=== PATIENT | male | born 1960 | race Caucasian/White ===

== ENCOUNTER 2018-02-02 07:10 | Outpatient (CLI) | payer OTHER ==
[~2018-02-02] VITALS: Ht 185.4 cm; Wt 99.8 kg
[2018-02-02] MEDS ORDERED: OXYC1TAB12 PO (09:51)
[2018-02-02] MEDS ORDERED: MULT-35 PO (09:51)
== END 2018-02-02 09:59 | disposition home or self-care (01) ==
LOC: PREOP 07:10
PROVIDERS: ATTEND Surgery
DX: Z01.818 Encounter for other preprocedural examination (principal)

== ENCOUNTER 2018-09-20 15:41 | Emergency (ER) | payer OTHER ==
[~2018-09-20] VITALS: Ht 185.4 cm; Wt 99.8 kg
[~2018-09-20 15:41] MED LIST: MULT-35 PO; OXYC1TAB12 PO
--- OUTSIDE RECORDS SUMMARY | 2018-09-20 15:46 | XMS REPORT ---
Author Author ALYSE BOTELLO [facility] Address [address] [place] [address] Care Team Providers Care Manager Ambulatory Name Role Phone ALYSE BOTELLO Unavailable PROBLEMS Type Condition ICD9-CM Code [id number] Code Onset Dates Condition Status SNOMED Code Problem Other chronic pain G89.29 Active 45323203 Problem Lumbago with sciatica, left side M54.42 Active 166653160 Problem Essential hypertension I10 Active 36695586 ALLERGIES No Information ENCOUNTERS Encounter Location Date Diagnosis [place] [address] [address]- [address] Mar, [place] [address] 47214- 4422 Feb, Lumbago with sciatica, left side M54.42 [place] [address] 34598- 6943 Jan, Lumbago with sciatica, left side M54.42 [place] [address] 68608- 0784 Dec, Lumbago with sciatica, left side M54.42 [place] [address] 37666- 9289 Dec, [place] [address] 48861- 5330 Dec, Essential hypertension I10 ; Lumbago with sciatica, left side M54.42 ; Other chronic pain G89.29 ; Overweight (BMI 25.0-29.9) E66.3 ; Controlled substance agreement signed Z79.899 ; High risk medication use Z79.899 and Umbilical hernia without obstruction and without gangrene K42.9 [facility] [address] [place] [address] 08381- 6794 Dec, Controlled substance agreement signed Z79.899 [facility] [address] [place] [id number] [place] [address] 61319- 2890 Oct, Controlled substance agreement signed Z79.899 [facility] [address] [place] [id number] [place] [address] 68683- 8655 Oct, Controlled substance agreement signed Z79.899 [facility] [address] [place] [id number] [place] [address] 04970- 8363 Oct, Essential hypertension I10 and Controlled substance agreement signed Z79.899 [place] [address] [place] [id number] [place] [address] 83597- 6024 September, Controlled substance agreement signed Z79.899 [place] [address] [place] [id number] [place] [address] 01523- 9465 Aug, Controlled substance agreement signed Z79.899 [facility] [address] [place] [id number] [place] [address] 00094- 9287 Aug, Controlled substance agreement signed Z79.899 [place] [address] [place] [id number] [place] [address] 88845- 4335 Aug, Controlled substance agreement signed Z79.899 [place] [address] [place] [id number] [place] [address] 07868- 8020 Aug, Controlled substance agreement signed Z79.899 [facility] [address] [place] [address] 09369- 3191 Jul, Controlled substance agreement signed Z79.899 and Essential hypertension I10 [facility] [address] [place] [id number] [place] [address] 32775- 7262 Jul, [facility] [address] [place] [address] 48777- 6092 Jun, Essential hypertension I10 ; Controlled substance agreement signed Z79.899 ; High risk medication use Z79.899 and Overweight (BMI 25.0-29.9 ) E66.3 [facility] [address] [facility] [id number] [place] [address]- 7[address] 16 Jun, 2017 [facility] [address] [facility] [id number] [address] 13 Jun, 2017 Essential hypertension I10 and Muscular pain M79.1 IMMUNIZATIONS No Known Immunizations SOCIAL HISTORY Never Assessed REASON FOR VISIT Medication refill request 03/01 PLAN OF CARE VITAL SIGNS MEDICATIONS Medication Instructions Dosage Frequency Start Date End Date Duration Status Percocet 10-325 MG Orally every 6 hrs 1 tablet as needed 6h Feb, 28 days Active RESULTS No Results PROCEDURES No Known procedures INSTRUCTIONS MEDICATIONS ADMINISTERED No Known Medications MEDICAL (GENERAL) HISTORY Type Description Date Medical History Back Pain from occupation Medical History hypertension
--- OUTSIDE RECORDS SUMMARY | 2018-09-20 15:46 | XMS REPORT ---
Author Author ALYSE BOTELLO [facility] Address [address] [place] [address] Care Team Providers Care Oil Plant Operator Name Role Phone ALYSE BOTELLO Unavailable PROBLEMS Type Condition ICD9-CM Code [id number]-QK Code Onset Dates Condition Status SNOMED Code Problem Other chronic pain G89.29 Active 56036665 Problem Lumbago with sciatica, left side M54.42 Active 797179518 Problem Essential hypertension I10 Active 41040435 ALLERGIES No Information ENCOUNTERS Encounter Location Date Diagnosis [place] [address] 32273- 8504 May, [place] [address] 35514- 6425 Apr, Essential hypertension I10 [place] [address] 07629- 9400 Mar, Essential hypertension I10 [facility] [place] [address] [place] [id number] [place] [address] 06991- 1374 Mar, Essential hypertension I10 [place] [address] 58012- 9095 Mar, Essential hypertension I10 [facility] [place] [address] [place] [id number] [place] [address] 90411- 2895 Mar, Essential hypertension I10 [facility] [place] [address] 29482- 7048 Feb, Lumbago with sciatica, left side M54.42 [facility] [place] [address] [place] [id number] [place] [address] 77564- 5668 Jan, Lumbago with sciatica, left side M54.42 [facility] [place] [address], [place] [address] 1060 Dec, Lumbago with sciatica, left side M54.42 [facility] [place] [address] [place] [address] 02883- 4000 Dec, [facility] [place] [address] [place] [id number] [place] [address] 98060- 0971 Dec, Essential hypertension I10 ; Lumbago with sciatica, left side M54.42 ; Other chronic pain G89.29 ; Overweight (BMI 25.0-29.9) E66.3 ; Controlled substance agreement signed Z79.899 ; High risk medication use Z79.899 and Umbilical hernia without obstruction and without gangrene K42.9 [place] [address], [place] [address] 2279 Dec, Controlled substance agreement signed Z79.899 [place] [address] [place] [id number] [place] [address] 14013- 4872 Oct, Controlled substance agreement signed Z79.899 [place] [address] [place] [id number] [place] [address] 81655- 3647 Oct, Controlled substance agreement signed Z79.899 [place] [address] [place] [address] 84074- 4893 Oct, Essential hypertension I10 and Controlled substance agreement signed Z79.899 [place] [address] [place] [address] 81077- 3186 September, Controlled substance agreement signed Z79.899 [place] [address] [place] [address] 62133- 8276 Aug, Controlled substance agreement signed Z79.899 [place] [address] [place] [address] 85193- 2413 Aug, Controlled substance agreement signed Z79.899 [place] [address] [place] [id number] [place] [address] 03197- 3638 Aug, Controlled substance agreement signed Z79.899 [place] [address] [place] [address] 13900- 0873 Aug, Controlled substance agreement signed Z79.899 [place] [address] [place] [id number] [place] [address] 13472- 4152 Jul, Controlled substance agreement signed Z79.899 and Essential hypertension I10 [place] [address] [place] [id number] [place] [address] 75276- 8236 Jul, [place] [address] [place] [address] 01191- 7984 19 Jun, 2017 Essential hypertension I10 ; Controlled substance agreement signed Z79.899 ; High risk medication use Z79.899 and Overweight (BMI 25.0-29.9 ) E66.3 [place] [address] [place] [address] 23111- 7383 16 Jun, 2017 [place] [address] [place] [address] 09789- 1748 13 Jun, 2017 Essential hypertension I10 and Muscular pain M79.1 IMMUNIZATIONS No Known Immunizations SOCIAL HISTORY Never Assessed REASON FOR VISIT Medication refill request PLAN OF CARE VITAL SIGNS MEDICATIONS Medication Instructions Dosage Frequency Start Date End Date Duration Status Percocet 10-325 MG Orally every 6 hrs 1 tablet as needed 6h Apr, 28 days Active Lisinopril 20 mg Orally Once a day 1 tablet 24h 10 Active RESULTS No Results PROCEDURES No Known procedures INSTRUCTIONS MEDICATIONS ADMINISTERED No Known Medications MEDICAL (GENERAL) HISTORY Type Description Date Medical History Back Pain from occupation Medical History hypertension
--- OUTSIDE RECORDS SUMMARY | 2018-09-20 15:46 | XMS REPORT ---
Author Author ALYSE BOTELLO [facility] Address [address] [place] [address] Care Team Providers Care Lime Trimmer Name Role Phone ALYSE BOTELLO Unavailable PROBLEMS Type Condition ICD9-CM Code [id number] Code Onset Dates Condition Status SNOMED Code Problem Other chronic pain G89.29 Active 83895352 Problem Lumbago with sciatica, left side M54.42 Active 639261465 Problem Essential hypertension I10 Active 72488251 ALLERGIES No Information ENCOUNTERS Encounter Location Date Diagnosis [place] [address] 33680- 3490 Mar, [place] [address] 27161- 4709 Mar, Essential hypertension I10 [place] [address] 74390- 3862 Feb, Lumbago with sciatica, left side M54.42 [place] [address] 75827- 0481 Jan, Lumbago with sciatica, left side M54.42 [place] [address] 30189- 8548 Dec, Lumbago with sciatica, left side M54.42 [place] [address] 24388- 5038 Dec, [place] [address] 35362- 4994 Dec, Essential hypertension I10 ; Lumbago with sciatica, left side M54.42 ; Other chronic pain G89.29 ; Overweight (BMI 25.0-29.9) E66.3 ; Controlled substance agreement signed Z79.899 ; High risk medication use Z79.899 and Umbilical hernia without obstruction and without gangrene K42.9 [facility] [address] [place] [id number] [place] [address] 66829- 9902 Dec, Controlled substance agreement signed Z79.899 [facility] [address] [place] [id number] [place] [address] 22448- 7887 Oct, Controlled substance agreement signed Z79.899 [facility] [address] [place] [id number] [place] [address] 35564- 4893 Oct, Controlled substance agreement signed Z79.899 [place] [address] [place] [id number] [place] [address] 26901- 5350 Oct, Essential hypertension I10 and Controlled substance agreement signed Z79.899 [place] [address] [place] [id number] [place] [address] 79063- 0783 September, Controlled substance agreement signed Z79.899 [place] [address] [place] [id number] [place] [address] 28618- 7603 Aug, Controlled substance agreement signed Z79.899 [place] [address] [place] [id number] [place] [address] 05724- 0965 Aug, Controlled substance agreement signed Z79.899 [place] [address] [place] [id number] [place] [address] 44518- 8766 Aug, Controlled substance agreement signed Z79.899 [place] [address] [place] [id number] [place] [address] 05063- 2686 Aug, Controlled substance agreement signed Z79.899 [place] [address] [place] [id number] [place] [address] 53694- 4320 Jul, Controlled substance agreement signed Z79.899 and Essential hypertension I10 [facility] [address] [place] [address] 77805- 1971 Jul, [facility] [address] [address]- 5456 19 Jun, 2017 Essential hypertension I10 ; Controlled substance agreement signed Z79.899 ; High risk medication use Z79.899 and Overweight (BMI 25.0-29.9 ) E66.3 [place] [address] [facility] [id number], [place] [address]- 6009 16 Jun, 2017 [place] [address] [place] [id number] [address]- 4198 13 Jun, 2017 Essential hypertension I10 and Muscular pain M79.1 IMMUNIZATIONS No Known Immunizations SOCIAL HISTORY Never Assessed REASON FOR VISIT Refill request PLAN OF CARE VITAL SIGNS MEDICATIONS Medication Instructions Dosage Frequency Start Date End Date Duration Status Lisinopril 20 mg Orally Once a day 1 tablet 24h 07 days Active RESULTS No Results PROCEDURES No Known procedures INSTRUCTIONS MEDICATIONS ADMINISTERED No Known Medications MEDICAL (GENERAL) HISTORY Type Description Date Medical History Back Pain from occupation Medical History hypertension
--- OUTSIDE RECORDS SUMMARY | 2018-09-20 15:46 | XMS REPORT ---
Author Author ALYSE BOTELLO [facility] Address [address] [place] [address] Care Team Providers Care Mental Health Coordinator Name Role Phone ALYSE BOTELLO Unavailable PROBLEMS Type Condition ICD9-CM Code PAQ36-RG Code Onset Dates Condition Status SNOMED Code Problem Other chronic pain G89.29 Active 53207725 Problem Lumbago with sciatica, left side M54.42 Active 693260454 Problem Essential hypertension I10 Active 57949882 ALLERGIES No Information ENCOUNTERS Encounter Location Date Diagnosis [place] [address] 52204- 8795 Mar, [place] [address] 24777- 3016 Mar, Essential hypertension I10 [place] [address] 37551- 8365 Mar, Essential hypertension I10 [place] [address] [place] [id number] [place] [address] 31361- 1652 Feb, Lumbago with sciatica, left side M54.42 [place] [address] [place] [id number] [place] [address] 65331- 0364 Jan, Lumbago with sciatica, left side M54.42 [place] [address] [place] [id number] [place] [address] 97049- 9737 Dec, Lumbago with sciatica, left side M54.42 [place] [address] [place] [id number] [place] [address] 85624- 6743 Dec, [place] [address] [place] [id number] [place] [address] 21375- 5578 Dec, Essential hypertension I10 ; Lumbago with sciatica, left side M54.42 ; Other chronic pain G89.29 ; Overweight (BMI 25.0-29.9) E66.3 ; Controlled substance agreement signed Z79.899 ; High risk medication use Z79.899 and Umbilical hernia without obstruction and without gangrene K42.9 [place] [address] [place] [id number] [place] [address] 10174- 2704 Dec, Controlled substance agreement signed Z79.899 [place] [address] [place] [id number] [place] [address] 92165- 7928 Oct, Controlled substance agreement signed Z79.899 [place] [address] [place] [id number] [place] [address] 44078- 8790 Oct, Controlled substance agreement signed Z79.899 [place] [address] [place] [id number] [place] [address] 41984- 0138 Oct, Essential hypertension I10 and Controlled substance agreement signed Z79.899 [place] [address] [place] [id number] [place] [address] 07880- 2984 September, Controlled substance agreement signed Z79.899 [place] [address] [place] [id number] [place] [address] 41424- 2646 Aug, Controlled substance agreement signed Z79.899 [place] [address] [place] [id number] [place] [address] 99936- 5042 Aug, Controlled substance agreement signed Z79.899 [place] [address] [place] [id number] [place] [address] 91974- 3083 Aug, Controlled substance agreement signed Z79.899 [place] [address] [place] [id number] [place] [address] 30012- 9619 Aug, Controlled substance agreement signed Z79.899 [place] [address] [place] [id number] [place] [address] 69781- 1874 Jul, Controlled substance agreement signed Z79.899 and Essential hypertension I10 [place] [address] [facility] [id number] [address]- 6392 Jul, [place] [address] [address]- 3175 19 Jun, 2017 Essential hypertension I10 ; Controlled substance agreement signed Z79.899 ; High risk medication use Z79.899 and Overweight (BMI 25.0-29.9 ) E66.3 [place] [address] [place] [address] 43488- 7048 16 Jun, 2017 [place] [address] [facility] [id number], [place] [address]- 4449 13 Jun, 2017 Essential hypertension I10 and Muscular pain M79.1 IMMUNIZATIONS No Known Immunizations SOCIAL HISTORY Never Assessed REASON FOR VISIT Medication refill request PLAN OF CARE VITAL SIGNS MEDICATIONS Medication Instructions Dosage Frequency Start Date End Date Duration Status Lisinopril 20 mg Orally Once a day 1 tablet 24h 7 days Active RESULTS No Results PROCEDURES No Known procedures INSTRUCTIONS MEDICATIONS ADMINISTERED No Known Medications MEDICAL (GENERAL) HISTORY Type Description Date Medical History Back Pain from occupation Medical History hypertension
--- OUTSIDE RECORDS SUMMARY | 2018-09-20 15:47 | XMS REPORT ---
Author Author KANWAL LIU Organization [facility] Address [address] [place] [address] Care Team Providers Care Preventative Maintenance Technician Name Role Phone KING KANWAL Unavailable PROBLEMS Type Condition ICD9-CM Code ZOP07-TW Code Onset Dates Condition Status SNOMED Code Problem Other chronic pain G89.29 Active 00583834 Problem Lumbago with sciatica, left side M54.42 Active 680163358 Problem Essential hypertension I10 Active 68567149 ALLERGIES No Information ENCOUNTERS Encounter Location Date Diagnosis [place] [address] 84070- 6170 Jan, Lumbago with sciatica, left side M54.42 [place] [address] 85872- 4048 Dec, Lumbago with sciatica, left side M54.42 [place] [address] 83632- 9905 Dec, [place] [address] 24648- 1135 Dec, Essential hypertension I10 ; Lumbago with sciatica, left side M54.42 ; Other chronic pain G89.29 ; Overweight (BMI 25.0-29.9) E66.3 ; Controlled substance agreement signed Z79.899 ; High risk medication use Z79.899 and Umbilical hernia without obstruction and without gangrene K42.9 [place] [address] 80041- 3691 Dec, Controlled substance agreement signed Z79.899 [place] [address] 80690- 1558 Oct, Controlled substance agreement signed Z79.899 [facility] [address] [place] [address] 60208- 1860 Oct, Controlled substance agreement signed Z79.899 [facility] [address] [place] [address] 74284- 5616 Oct, Essential hypertension I10 and Controlled substance agreement signed Z79.899 [place] [address] [place] [id number] [place] [address] 85934- 4660 September, Controlled substance agreement signed Z79.899 [place] [address] [place] [id number] [place] [address] 54005- 8118 Aug, Controlled substance agreement signed Z79.899 [place] [address] [place] [id number] [place] [address] 67140- 6986 Aug, Controlled substance agreement signed Z79.899 [place] [address] [place] [id number] [place] [address] 43189- 3681 Aug, Controlled substance agreement signed Z79.899 [place] [address] [place] [id number] [place] [address] 60372- 7881 Aug, Controlled substance agreement signed Z79.899 [place] [address] [place] [id number] [place] [address] 72233- 9943 Jul, Controlled substance agreement signed Z79.899 and Essential hypertension I10 [place] [address] [place] [address] 99780- 9266 Jul, [place] [address] [place] [address] 91290- 0248 Jun, Essential hypertension I10 ; Controlled substance agreement signed Z79.899 ; High risk medication use Z79.899 and Overweight (BMI 25.0-29.9 ) E66.3 [place] [address] [place] [address] 72394- 5116 Jun, [place] [address] [place] [id number] [place] [address] 85151- 0668 Jun, Essential hypertension I10 and Muscular pain M79.1 IMMUNIZATIONS No Known Immunizations SOCIAL HISTORY Never Assessed REASON FOR VISIT Controlled refill PLAN OF CARE VITAL SIGNS MEDICATIONS Medication Instructions Dosage Frequency Start Date End Date Duration Status Percocet 10-325 MG Orally every 6 hrs 1 tablet as needed 6h Jan, Active RESULTS No Results PROCEDURES No Known procedures INSTRUCTIONS MEDICATIONS ADMINISTERED No Known Medications MEDICAL (GENERAL) HISTORY Type Description Date Medical History Back Pain from occupation Medical History hypertension
--- OUTSIDE RECORDS SUMMARY | 2018-09-20 15:47 | XMS REPORT ---
Author Author JOSE LUIS COBB Organization [facility] Address [address] [place] [address] Care Team Providers Care Spooler Operator Automatic Name Role Phone COBBTAVARES LozanoELE Unavailable PROBLEMS Type Condition ICD9-CM Code [id number] Code Onset Dates Condition Status SNOMED Code Problem Other chronic pain G89.29 Active 88730479 Problem Lumbago with sciatica, left side M54.42 Active 101887312 Problem Essential hypertension I10 Active 35173631 ALLERGIES No Information ENCOUNTERS Encounter Location Date Diagnosis [place] [address] [address] [id number] [place] [address] 07899- 2363 Dec, Lumbago with sciatica, left side M54.42 [facility] [id number] [place] [address] 78165- 0036 Dec, [place] [address] 30570- 9664 Dec, Essential hypertension I10 ; Lumbago with sciatica, left side M54.42 ; Other chronic pain G89.29 ; Overweight (BMI 25.0-29.9) E66.3 ; Controlled substance agreement signed Z79.899 ; High risk medication use Z79.899 and Umbilical hernia without obstruction and without gangrene K42.9 [facility] [address] [place] [address] 17360- 7772 Dec, Controlled substance agreement signed Z79.899 [place] [id number] [place] [address] 54747- 9563 Oct, Controlled substance agreement signed Z79.899 [place] [id number] [place] [address] 59489- 8929 Oct, Controlled substance agreement signed Z79.899 [facility] [address] [place] [address] 26971- 7976 Oct, Essential hypertension I10 and Controlled substance agreement signed Z79.899 [facility] [id number] [place] [address] 71684- 7326 September, Controlled substance agreement signed Z79.899 [place] [id number] [place] [address] 78613- 6787 Aug, Controlled substance agreement signed Z79.899 [place] [id number] [place] [address] 15903- 8359 Aug, Controlled substance agreement signed Z79.899 [place] [id number] [place] [address] 27407- 2712 Aug, Controlled substance agreement signed Z79.899 [place] [id number] [place] [address] 10405- 7330 Aug, Controlled substance agreement signed Z79.899 [place] [id number] [place] [address] 71671- 4975 Jul, Controlled substance agreement signed Z79.899 and Essential hypertension I10 [place] [address] [place] [address] 56054- 3784 Jul, [place] [address] [place] [address] 68303- 7959 Jun, Essential hypertension I10 ; Controlled substance agreement signed Z79.899 ; High risk medication use Z79.899 and Overweight (BMI 25.0-29.9 ) E66.3 [place] [id number] [place] [address] 28829- 9250 Jun, [place] [id number] [place] [address] 06362- 7985 Jun, Essential hypertension I10 and Muscular pain M79.1 IMMUNIZATIONS No Known Immunizations SOCIAL HISTORY Never Assessed REASON FOR VISIT Controlled Med 01/06 PLAN OF CARE VITAL SIGNS MEDICATIONS Medication Instructions Dosage Frequency Start Date End Date Duration Status Percocet 10-325 MG Orally every 6 hrs 1 tablet as needed 6h Dec, Active RESULTS No Results PROCEDURES No Known procedures INSTRUCTIONS MEDICATIONS ADMINISTERED No Known Medications MEDICAL (GENERAL) HISTORY Type Description Date Medical History Back Pain from occupation Medical History hypertension
--- OUTSIDE RECORDS SUMMARY | 2018-09-20 15:47 | XMS REPORT ---
Author Author JOSE LUIS COBB Organization [facility] Address [address] [place] [address] Care Team Providers Care Watch Commander Name Role Phone COBBTAVARES LozanoELE Unavailable PROBLEMS Type Condition ICD9-CM Code NFG63-PU Code Onset Dates Condition Status SNOMED Code Problem Other chronic pain G89.29 Active 02975816 Problem Lumbago with sciatica, left side M54.42 Active 565574029 Problem Essential hypertension I10 Active 08044465 ALLERGIES No Information ENCOUNTERS Encounter Location Date Diagnosis [place] [address] [id number] [place] [address] 82516- 6206 Dec, Lumbago with sciatica, left side M54.42 [facility] [id number] [place] [address] 77806- 0675 Dec, [place] [address] 46495- 0669 Dec, Essential hypertension I10 ; Lumbago with sciatica, left side M54.42 ; Other chronic pain G89.29 ; Overweight (BMI 25.0-29.9) E66.3 ; Controlled substance agreement signed Z79.899 ; High risk medication use Z79.899 and Umbilical hernia without obstruction and without gangrene K42.9 [facility] [address] [place] [address] 67270- 6584 Dec, Controlled substance agreement signed Z79.899 [place] [id number] [place] [address] 10161- 4560 Oct, Controlled substance agreement signed Z79.899 [place] [id number] [place] [address] 47033- 4255 Oct, Controlled substance agreement signed Z79.899 [facility] [address] [place] [address] 83245- 9243 Oct, Essential hypertension I10 and Controlled substance agreement signed Z79.899 [facility] [id number] [place] [address] 55859- 4360 September, Controlled substance agreement signed Z79.899 [place] [id number] [place] [address] 00003- 3924 Aug, Controlled substance agreement signed Z79.899 [place] [id number] [place] [address] 79796- 4794 Aug, Controlled substance agreement signed Z79.899 [place] [id number] [place] [address] 36359- 7920 Aug, Controlled substance agreement signed Z79.899 [place] [id number] [place] [address] 18053- 1411 Aug, Controlled substance agreement signed Z79.899 [place] [id number] [place] [address] 71821- 4501 Jul, Controlled substance agreement signed Z79.899 and Essential hypertension I10 [place] [address] [place] [address] 44924- 0490 Jul, [place] [address] [place] [address] 50875- 0244 Jun, Essential hypertension I10 ; Controlled substance agreement signed Z79.899 ; High risk medication use Z79.899 and Overweight (BMI 25.0-29.9 ) E66.3 [place] [id number] [place] [address] 92971- 9258 Jun, [place] [id number] [place] [address] 52444- 3855 Jun, Essential hypertension I10 and Muscular pain M79.1 IMMUNIZATIONS No Known Immunizations SOCIAL HISTORY Never Assessed REASON FOR VISIT Percocet due 12/09 PLAN OF CARE VITAL SIGNS MEDICATIONS Medication Instructions Dosage Frequency Start Date End Date Duration Status Percocet 10-325 MG Orally every 6 hrs 1 tablet as needed 6h Dec, 28 days Active RESULTS No Results PROCEDURES No Known procedures INSTRUCTIONS MEDICATIONS ADMINISTERED No Known Medications MEDICAL (GENERAL) HISTORY Type Description Date Medical History Back Pain from occupation Medical History hypertension
--- OUTSIDE RECORDS SUMMARY | 2018-09-20 15:47 | XMS REPORT ---
Author Author JOSE LUIS COBB [facility] Address [address] [place] [address] Care Team Providers Care Steam Roller Operator Name Role Phone COBBTAVARES LozanoELE Unavailable PROBLEMS Type Condition ICD9-CM Code QQX25-AZ Code Onset Dates Condition Status SNOMED Code Problem Other chronic pain G89.29 Active 54045494 Problem Lumbago with sciatica, left side M54.42 Active 922053557 Problem Essential hypertension I10 Active 60445399 ALLERGIES No Information ENCOUNTERS Encounter Location Date Diagnosis [place] [address] [place] [id number] [place] [address] 49072- 0855 Dec, Essential hypertension I10 ; Lumbago with sciatica, left side M54.42 ; Other chronic pain G89.29 ; Overweight (BMI 25.0-29.9) E66.3 ; Controlled substance agreement signed Z79.899 ; High risk medication use Z79.899 and Umbilical hernia without obstruction and without gangrene K42.9 [place] [address] [place] [address] 91578- 9990 Dec, Controlled substance agreement signed Z79.899 [place] [address] [place] [id number] [place] [address] 73518- 8412 Oct, Controlled substance agreement signed Z79.899 [place] [address] [place] [id number] [place] [address] 91804- 4208 Oct, Controlled substance agreement signed Z79.899 [place] [id number] [place] [address] 70799- 6799 Oct, Essential hypertension I10 and Controlled substance agreement signed Z79.899 [place] [address] [address] [id number] [place] [address] 59692- 7877 September, Controlled substance agreement signed Z79.899 [place] [address] [place] [address] 25518- 8208 Aug, Controlled substance agreement signed Z79.899 [place] [address] [place] [address] 62410- 1595 Aug, Controlled substance agreement signed Z79.899 [place] [address] [address] [id number] [place] [address] 50759- 6824 Aug, Controlled substance agreement signed Z79.899 [place] [address] [address] [id number] [place] [address] 91781- 4298 Aug, Controlled substance agreement signed Z79.899 [place] [address] [address] [id number] [place] [address] 69283- 0951 Jul, Controlled substance agreement signed Z79.899 and Essential hypertension I10 [place] [address] [address] [id number] [place] [address] 01629- 6969 Jul, [place] [address] [address] [id number] [place] [address] 00035- 2113 Jun, Essential hypertension I10 ; Controlled substance agreement signed Z79.899 ; High risk medication use Z79.899 and Overweight (BMI 25.0-29.9 ) E66.3 [place] [address] [place] [address] 44198- 8037 Jun, [place] [address] [place] [address] 08362- 8465 Jun, Essential hypertension I10 and Muscular pain M79.1 IMMUNIZATIONS No Known Immunizations SOCIAL HISTORY Never Assessed REASON FOR VISIT Controlled Med Refill PLAN OF CARE VITAL SIGNS MEDICATIONS Medication Instructions Dosage Frequency Start Date End Date Duration Status Percocet 10-325 MG Orally every 6 hrs 1 tablet as needed 6h Oct, 28 days Active Lisinopril 20 mg Orally Once a day 1 tablet 24h 30 days Active RESULTS No Results PROCEDURES No Known procedures INSTRUCTIONS MEDICATIONS ADMINISTERED No Known Medications MEDICAL (GENERAL) HISTORY Type Description Date Medical History Back Pain from occupation Medical History hypertension
--- OUTSIDE RECORDS SUMMARY | 2018-09-20 15:47 | XMS REPORT ---
Author Author JOSE LUIS COBB [facility] Address [address] [place] [address] Care Team Providers Care Tax Appraiser Name Role Phone COBBTAVARES LozanoELE Unavailable PROBLEMS Type Condition ICD9-CM Code WYF35-LC Code Onset Dates Condition Status SNOMED Code Problem Other chronic pain G89.29 Active 16966581 Problem Lumbago with sciatica, left side M54.42 Active 074014839 Problem Essential hypertension I10 Active 95705748 ALLERGIES No Information ENCOUNTERS Encounter Location Date Diagnosis [place] [address] [place] [address] [id number] [place] [address] 46338- 6202 Dec, Essential hypertension I10 ; Lumbago with sciatica, left side M54.42 ; Other chronic pain G89.29 ; Overweight (BMI 25.0-29.9) E66.3 ; Controlled substance agreement signed Z79.899 ; High risk medication use Z79.899 and Umbilical hernia without obstruction and without gangrene K42.9 [place] [address] [place] [address] 13695- 9779 Dec, Controlled substance agreement signed Z79.899 [place] [address] [place] [id number] [place] [address] 38757- 7443 Oct, Controlled substance agreement signed Z79.899 [place] [address] [place] [address] [id number] [place] [address] 45954- 4877 Oct, Controlled substance agreement signed Z79.899 [place] [id number] [place] [address] 20449- 9479 Oct, Essential hypertension I10 and Controlled substance agreement signed Z79.899 [place] [address] [id number] [place] [address] 93401- 7160 September, Controlled substance agreement signed Z79.899 [place] [address] [address]- 5636 Aug, Controlled substance agreement signed Z79.899 [place] [address] [place] [address] 01641- 8786 Aug, Controlled substance agreement signed Z79.899 [place] [address] [place] [address] 58157- 1565 Aug, Controlled substance agreement signed Z79.899 [place] [id number] [place] [address] 70191- 5520 Aug, Controlled substance agreement signed Z79.899 [place] [address] [id number] [place] [address] 38396- 7834 Jul, Controlled substance agreement signed Z79.899 and Essential hypertension I10 [place] [address] [id number] [place] [address] 58050- 2675 Jul, [place] [address] [id number] [place] [address] 97459- 2217 Jun, Essential hypertension I10 ; Controlled substance agreement signed Z79.899 ; High risk medication use Z79.899 and Overweight (BMI 25.0-29.9 ) E66.3 [place] [address] [address]- 4136 Jun, [place] [address] [place] [address] 41917- 0152 Jun, Essential hypertension I10 and Muscular pain M79.1 IMMUNIZATIONS No Known Immunizations SOCIAL HISTORY Never Assessed REASON FOR VISIT Controlled Med Refill PLAN OF CARE VITAL SIGNS MEDICATIONS Medication Instructions Dosage Frequency Start Date End Date Duration Status Percocet 10-325 MG Orally every 6 hrs 1 tablet as needed 6h Oct, 28 days Active RESULTS No Results PROCEDURES No Known procedures INSTRUCTIONS MEDICATIONS ADMINISTERED No Known Medications MEDICAL (GENERAL) HISTORY Type Description Date Medical History Back Pain from occupation Medical History hypertension
--- OUTSIDE RECORDS SUMMARY | 2018-09-20 15:47 | XMS REPORT ---
Author Author JOSE LUIS COBB Organization [facility] [place] Address [address] [place] [address] Care Team Providers Care Primer Inserting Machine Adjuster Name Role Phone COBBTAVARES LozanoELE Unavailable PROBLEMS Type Condition ICD9-CM Code DLQ20-SU Code Onset Dates Condition Status SNOMED Code Problem Essential hypertension I10 Active 47511603 ALLERGIES No Information ENCOUNTERS Encounter Location Date Diagnosis [facility] [place] [address] [place] [id number] [place] [address] 64478- 4542 Dec, [place] [address] [place] [address] [id number] [place] [address] 47640- 6396 Oct, Controlled substance agreement signed Z79.899 [place] [address] [place] [address] [id number] [place] [address] 30778- 5670 Oct, Controlled substance agreement signed Z79.899 [place] [address] [place] [address] [id number] [place] [address] 47895- 2502 Oct, Essential hypertension I10 and Controlled substance agreement signed Z79.899 [place] [address] [place] [address] 87110- 4930 September, Controlled substance agreement signed Z79.899 [place] [address] [place] [address] [id number] [place] [address] 84631- 2008 Aug, Controlled substance agreement signed Z79.899 [place] [address] [place] [address] [id number] [place] [address] 31461- 1969 Aug, Controlled substance agreement signed Z79.899 [place] [address] [place] [address] 14423- 6774 Aug, Controlled substance agreement signed Z79.899 [place] [address] [place] [id number] [address]- 0995 Aug, Controlled substance agreement signed Z79.899 [place] [id number] [place] [address] 01948- 8441 Jul, Controlled substance agreement signed Z79.899 and Essential hypertension I10 [place] [id number] [place] [address] 47912- 4449 Jul, [place] [address] [id number] [place] [address] 94404- 8342 Jun, Essential hypertension I10 ; Controlled substance agreement signed Z79.899 ; High risk medication use Z79.899 and Overweight (BMI 25.0-29.9 ) E66.3 [place] [address] [place] [address] 79995- 3907 16 Jun, 2017 [place] [id number] [place] [address] 69865- 3353 13 Jun, 2017 Essential hypertension I10 and Muscular pain M79.1 IMMUNIZATIONS No Known Immunizations SOCIAL HISTORY Never Assessed REASON FOR VISIT Controlled Med Refill PLAN OF CARE VITAL SIGNS MEDICATIONS Medication Instructions Dosage Frequency Start Date End Date Duration Status Percocet 10-325 MG Orally every 6 hrs 1 tablet as needed 6h Aug, 28 days Active RESULTS No Results PROCEDURES No Known procedures INSTRUCTIONS MEDICATIONS ADMINISTERED No Known Medications MEDICAL (GENERAL) HISTORY Type Description Date Medical History Back Pain from occupation Medical History hypertension
--- OUTSIDE RECORDS SUMMARY | 2018-09-20 15:47 | XMS REPORT ---
Author Author JOSE LUIS COBB Organization [facility] Address [address] [place] [address] Care Team Providers Care Oracle Sql Developer Name Role Phone COBBTAVARES LozanoELE Unavailable PROBLEMS Type Condition ICD9-CM Code OTV54-[place] Code Onset Dates Condition Status SNOMED Code Problem Other chronic pain G89.29 Active 70708354 Problem Lumbago with sciatica, left side M54.42 Active 942943681 Problem Essential hypertension I10 Active 07199059 ALLERGIES No Information ENCOUNTERS Encounter Location Date Diagnosis [place] [address] [place] [id number] [place] [address] 67911- 4171 Dec, Lumbago with sciatica, left side M54.42 [facility] [id number] [place] [address] 55477- 4066 Dec, [place] [address] 83938- 5248 Dec, Essential hypertension I10 ; Lumbago with sciatica, left side M54.42 ; Other chronic pain G89.29 ; Overweight (BMI 25.0-29.9) E66.3 ; Controlled substance agreement signed Z79.899 ; High risk medication use Z79.899 and Umbilical hernia without obstruction and without gangrene K42.9 [facility] [address] [place] [address] 11172- 9133 Dec, Controlled substance agreement signed Z79.899 [place] [id number] [place] [address] 16151- 1725 Oct, Controlled substance agreement signed Z79.899 [place] [address] [id number] [place] [address] 37071- 5017 Oct, Controlled substance agreement signed Z79.899 [facility] [address] [place] [address] 51861- 4484 Oct, Essential hypertension I10 and Controlled substance agreement signed Z79.899 [facility] [id number] [place] [address] 76573- 1413 September, Controlled substance agreement signed Z79.899 [place] [address] [id number] [place] [address] 53771- 7389 Aug, Controlled substance agreement signed Z79.899 [place] [address] [id number] [place] [address] 68399- 2525 Aug, Controlled substance agreement signed Z79.899 [place] [address] [id number] [place] [address] 18206- 5885 Aug, Controlled substance agreement signed Z79.899 [place] [address] [id number] [place] [address] 73146- 0978 Aug, Controlled substance agreement signed Z79.899 [place] [address] [id number] [place] [address] 49890- 5087 Jul, Controlled substance agreement signed Z79.899 and Essential hypertension I10 [place] [address] [place] [address] 24141- 7445 Jul, [place] [address] [place] [address] 78332- 7390 Jun, Essential hypertension I10 ; Controlled substance agreement signed Z79.899 ; High risk medication use Z79.899 and Overweight (BMI 25.0-29.9 ) E66.3 [place] [address] [id number] [place] [address] 89816- 1378 Jun, [place] [address] [place] [id number] [place] [address] 31401- 7792 Jun, Essential hypertension I10 and Muscular pain M79.1 IMMUNIZATIONS No Known Immunizations SOCIAL HISTORY Never Assessed REASON FOR VISIT Controlled Med Refill 11/11 PLAN OF CARE VITAL SIGNS MEDICATIONS Medication Instructions Dosage Frequency Start Date End Date Duration Status Percocet 10-325 MG Orally every 6 hrs 1 tablet as needed 6h Nov, 28 days Active RESULTS No Results PROCEDURES No Known procedures INSTRUCTIONS MEDICATIONS ADMINISTERED No Known Medications MEDICAL (GENERAL) HISTORY Type Description Date Medical History Back Pain from occupation Medical History hypertension
--- OUTSIDE RECORDS SUMMARY | 2018-09-20 15:47 | XMS REPORT ---
Author Author JOSE LUIS COBB [facility] Address [address] [place] [address] Care Team Providers Care Telecommunications Equipment Installer Name Role Phone COBBTAVARES LozanoELE Unavailable PROBLEMS Type Condition ICD9-CM Code TJS94-FO Code Onset Dates Condition Status SNOMED Code Problem Other chronic pain G89.29 Active 25539269 Problem Lumbago with sciatica, left side M54.42 Active 619069705 Problem Essential hypertension I10 Active 60361547 ALLERGIES No Information ENCOUNTERS Encounter Location Date Diagnosis [place] [id number] [place] [address] 49790- 9624 Dec, Essential hypertension I10 ; Lumbago with sciatica, left side M54.42 ; Other chronic pain G89.29 ; Overweight (BMI 25.0-29.9) E66.3 ; Controlled substance agreement signed Z79.899 ; High risk medication use Z79.899 and Umbilical hernia without obstruction and without gangrene K42.9 [place] [address] [place] [address] 34406- 1056 Dec, Controlled substance agreement signed Z79.899 [place] [id number] [place] [address] 14139- 8102 Oct, Controlled substance agreement signed Z79.899 [place] [id number] [place] [address] 90744- 9977 Oct, Controlled substance agreement signed Z79.899 [place] [id number] [place] [address] 63110- 9171 Oct, Essential hypertension I10 and Controlled substance agreement signed Z79.899 [place] [id number] [place] [address] 99578- 8872 September, Controlled substance agreement signed Z79.899 [place] [address] [address] 9453 Aug, Controlled substance agreement signed Z79.899 [place] [address] [place] [address] 99005- 8855 Aug, Controlled substance agreement signed Z79.899 [place] [address] [place] [address] 68315- 0703 Aug, Controlled substance agreement signed Z79.899 [place] [id number] [place] [address] 14270- 3595 Aug, Controlled substance agreement signed Z79.899 [place] [id number] [place] [address] 55033- 4405 Jul, Controlled substance agreement signed Z79.899 and Essential hypertension I10 [place] [id number] [place] [address] 08654- 0595 Jul, [place] [id number] [place] [address] 22883- 7261 Jun, Essential hypertension I10 ; Controlled substance agreement signed Z79.899 ; High risk medication use Z79.899 and Overweight (BMI 25.0-29.9 ) E66.3 [place] [address] [address] 6917 Jun, [place] [address] [place] [address] 41760- 2688 Jun, Essential hypertension I10 and Muscular pain M79.1 IMMUNIZATIONS No Known Immunizations SOCIAL HISTORY Never Assessed REASON FOR VISIT Controlled Med Refill PLAN OF CARE VITAL SIGNS MEDICATIONS Medication Instructions Dosage Frequency Start Date End Date Duration Status Percocet 10-325 MG Orally every 6 hrs 1 tablet as needed 6h September, 28 days Active RESULTS No Results PROCEDURES No Known procedures INSTRUCTIONS MEDICATIONS ADMINISTERED No Known Medications MEDICAL (GENERAL) HISTORY Type Description Date Medical History Back Pain from occupation Medical History hypertension
--- OUTSIDE RECORDS SUMMARY | 2018-09-20 15:47 | XMS REPORT ---
Author Author JOSE LUIS COBB Organization [facility] Address [address] [place] [address] Care Team Providers Care Supervisor Pigment Making Name Role Phone COBBTAVARES LozanoELE Unavailable PROBLEMS Type Condition ICD9-CM Code XCS00-WI Code Onset Dates Condition Status SNOMED Code Problem Essential hypertension I10 Active 68926848 ALLERGIES No Information ENCOUNTERS Encounter Location Date Diagnosis [facility] [id number] [place] [address] 63576- 5322 Dec, [place] [id number] [place] [address] 33238- 4497 Oct, Controlled substance agreement signed Z79.899 [place] [id number] [place] [address] 26841- 6671 Oct, Controlled substance agreement signed Z79.899 [place] [id number] [place] [address] 62513- 1947 Oct, Essential hypertension I10 and Controlled substance agreement signed Z79.899 [place] [address] [place] [address] 38039- 8178 September, Controlled substance agreement signed Z79.899 [place] [id number] [place] [address] 12345- 6155 Aug, Controlled substance agreement signed Z79.899 [place] [address] [id number] [place] [address] 16161- 7959 Aug, Controlled substance agreement signed Z79.899 [place] [address] [place] [address] 78263- 4180 Aug, Controlled substance agreement signed Z79.899 [place] [id number] [address]- 9181 Aug, Controlled substance agreement signed Z79.899 [place] [id number] [place] [address] 98804- 1300 Jul, Controlled substance agreement signed Z79.899 and Essential hypertension I10 [place] [id number] [place] [address] 14530- 8536 Jul, [place] [id number] [place] [address] 75632- 4574 Jun, Essential hypertension I10 ; Controlled substance agreement signed Z79.899 ; High risk medication use Z79.899 and Overweight (BMI 25.0-29.9 ) E66.3 [place] [address] [place] [address] 42566- 5401 16 Jun, 2017 [place] [id number] [place] [address] 73140- 1226 13 Jun, 2017 Essential hypertension I10 and [...]
--- OUTSIDE RECORDS SUMMARY | 2018-09-20 15:47 | XMS REPORT ---
Author Author JOSE LUIS COBB [facility] Address [address] [place] [address] Care Team Providers Care Vector Control Specialist Name Role Phone COBBTAVARES LozanoELE Unavailable PROBLEMS Type Condition ICD9-CM Code AUV34-AD Code Onset Dates Condition Status SNOMED Code Problem Other chronic pain G89.29 Active 38338948 Problem Lumbago with sciatica, left side M54.42 Active 239355697 Problem Essential hypertension I10 Active 92439563 ALLERGIES No Known Allergies ENCOUNTERS Encounter Location Date Diagnosis [place] [address] [place] [address] [id number] [place] [address] 38462- 5387 Dec, Lumbago with sciatica, left side M54.42 [facility] [id number] [place] [address] 27137- 2747 Dec, [place] [address] 82798- 3361 Dec, Essential hypertension I10 ; Lumbago with sciatica, left side M54.42 ; Other chronic pain G89.29 ; Overweight (BMI 25.0-29.9) E66.3 ; Controlled substance agreement signed Z79.899 ; High risk medication use Z79.899 and Umbilical hernia without obstruction and without gangrene K42.9 [facility] [address] [place] [address] 45224- 7047 Dec, Controlled substance agreement signed Z79.899 [place] [id number] [place] [address] 15423- 0041 Oct, Controlled substance agreement signed Z79.899 [place] [address] [id number] [place] [address] 87610- 4267 Oct, Controlled substance agreement signed Z79.899 [facility] [address] [place] [address] 17188- 9180 Oct, Essential hypertension I10 and Controlled substance agreement signed Z79.899 [facility] [id number] [place] [address] 93637- 7908 September, Controlled substance agreement signed Z79.899 [place] [address] [id number] [place] [address] 72520- 2533 Aug, Controlled substance agreement signed Z79.899 [place] [address] [address] [id number] [place] [address] 26881- 0211 Aug, Controlled substance agreement signed Z79.899 [place] [address] [id number] [place] [address] 12944- 5264 Aug, Controlled substance agreement signed Z79.899 [place] [address] [address] [id number] [place] [address] 39937- 1684 Aug, Controlled substance agreement signed Z79.899 [place] [address] [id number] [place] [address] 00390- 1158 Jul, Controlled substance agreement signed Z79.899 and Essential hypertension I10 [place] [address] [place] [address] 35252- 2916 Jul, [place] [address] [id number] [place] [address] 70245- 5827 Jun, Essential hypertension I10 ; Controlled substance agreement signed Z79.899 ; High risk medication use Z79.899 and Overweight (BMI 25.0-29.9 ) E66.3 [place] [address] [id number] [place] [address] 80836- 8969 Jun, [place] [address] [address] [id number] [place] [address] 41093- 8097 Jun, Essential hypertension I10 and Muscular pain M79.1 IMMUNIZATIONS No Known Immunizations SOCIAL HISTORY Never Assessed REASON FOR VISIT Pain management (chronic) -- laurie roberts PLAN OF CARE Activity Details Follow Up 3 Months, prn Reason:CHM/Pain/HTN VITAL SIGNS Height 73 in 2017-12-14 Weight 222.6 lbs 2017-12-14 Temperature 98.0 degrees Fahrenheit 2017-12-14 Heart Rate 88 bpm 2017-12-14 Respiratory Rate 22 2017-12-14 BMI 29.37 kg/m2 2017-12-14 Blood pressure systolic 140 mmHg 2017-12-14 Blood pressure diastolic 92 mmHg 2017-12-14 MEDICATIONS Medication Instructions Dosage Frequency Start Date End Date Duration Status Potassium Bicarbonate 99 MG Active Lisinopril 20 mg Orally Once a day 1 tablet 24h Active Calcium 500 MG Orally Twice a day 1 tablet with meals 12h Active Omeprazole Magnesium 20 MG Orally Once a day 1 tablet 24h Active Percocet 10-325 MG Orally every 6 hrs 1 tablet as needed 6h Dec, Active Multivitamin Adult - Active RESULTS No Results PROCEDURES Procedure Date Ordered Result Body Site LIPID PANEL Dec 14, 2017 COMPLETE CBC W/AUTO DIFF WBC Dec 14, 2017 COMPREHEN METABOLIC PANEL Dec 14, 2017 ASSAY THYROID STIM HORMONE Dec 14, 2017 VENIPUNCT, ROUTINE* Dec 14, 2017 DRUG TEST PRSMV DIR OPT OBS Dec 14, 2017 INSTRUCTIONS MEDICATIONS ADMINISTERED No Known Medications MEDICAL (GENERAL) HISTORY Type Description Date Medical History Back Pain from occupation Medical History hypertension
--- OUTSIDE RECORDS SUMMARY | 2018-09-20 15:47 | XMS REPORT ---
Author Author JOSE LUIS COBB Organization [facility] Address [address] [place] [address] Care Team Providers Care Hydro Plant Operator Name Role Phone COBBTAVARES LozanoELE Unavailable PROBLEMS Type Condition ICD9-CM Code CBV77-KB Code Onset Dates Condition Status SNOMED Code Problem Other chronic pain G89.29 Active 82036982 Problem Lumbago with sciatica, left side M54.42 Active 461251449 Problem Essential hypertension I10 Active 19201299 ALLERGIES No Information ENCOUNTERS Encounter Location Date Diagnosis [place] [address] [place] [address] [id number] [place] [address] 24729- 2535 Dec, Lumbago with sciatica, left side M54.42 [facility] [id number] [place] [address] 92269- 1992 Dec, [place] [address] 16689- 7245 Dec, Essential hypertension I10 ; Lumbago with sciatica, left side M54.42 ; Other chronic pain G89.29 ; Overweight (BMI 25.0-29.9) E66.3 ; Controlled substance agreement signed Z79.899 ; High risk medication use Z79.899 and Umbilical hernia without obstruction and without gangrene K42.9 [facility] [address] [place] [address] 16534- 4547 Dec, Controlled substance agreement signed Z79.899 [place] [id number] [place] [address] 33875- 6229 Oct, Controlled substance agreement signed Z79.899 [place] [id number] [place] [address] 48747- 0074 Oct, Controlled substance agreement signed Z79.899 [facility] [address] [place] [address] 52025- 8848 Oct, Essential hypertension I10 and Controlled substance agreement signed Z79.899 [facility] [id number] [place] [address] 78878- 9211 September, Controlled substance agreement signed Z79.899 [place] [address] [id number] [place] [address] 67654- 9511 Aug, Controlled substance agreement signed Z79.899 [place] [address] [id number] [place] [address] 20789- 2061 Aug, Controlled substance agreement signed Z79.899 [place] [address] [id number] [place] [address] 97193- 0363 Aug, Controlled substance agreement signed Z79.899 [place] [address] [place] [id number] [place] [address] 89089- 6598 Aug, Controlled substance agreement signed Z79.899 [place] [address] [id number] [place] [address] 11901- 0757 Jul, Controlled substance agreement signed Z79.899 and Essential hypertension I10 [place] [address] [place] [address] 05185- 5838 Jul, [place] [address] [address] [id number] [place] [address] 27558- 9663 Jun, Essential hypertension I10 ; Controlled substance agreement signed Z79.899 ; High risk medication use Z79.899 and Overweight (BMI 25.0-29.9 ) E66.3 [place] [id number] [place] [address] 82412- 0987 Jun, [place] [address] [address] [id number] [place] [address] 23414- 5872 Jun, Essential hypertension I10 and Muscular pain M79.1 IMMUNIZATIONS No Known Immunizations SOCIAL HISTORY Never Assessed REASON FOR VISIT Referral PLAN OF CARE VITAL SIGNS MEDICATIONS Unknown Medications RESULTS No Results PROCEDURES No Known procedures INSTRUCTIONS MEDICATIONS ADMINISTERED No Known Medications MEDICAL (GENERAL) HISTORY Type Description Date Medical History Back Pain from occupation Medical History hypertension
--- OUTSIDE RECORDS SUMMARY | 2018-09-20 15:47 | XMS REPORT ---
Author Author JOSE LUIS COBB Organization [facility] Address [address] [place] [address] Care Team Providers Care Commercial Lines Insurance Agent Name Role Phone COBBTAVARES LozanoELE Unavailable PROBLEMS Type Condition ICD9-CM Code ERI87-TS Code Onset Dates Condition Status SNOMED Code Problem Essential hypertension I10 Active 62658934 ALLERGIES No Information ENCOUNTERS Encounter Location Date Diagnosis [facility] [id number] [place] [address] 15408- 0372 Dec, [place] [id number] [place] [address] 56602- 7743 Oct, Controlled substance agreement signed Z79.899 [place] [address] [id number] [place] [address] 74609- 1560 Oct, Controlled substance agreement signed Z79.899 [place] [id number] [place] [address] 67760- 2160 Oct, Essential hypertension I10 and Controlled substance agreement signed Z79.899 [place] [address] [place] [address] 97454- 5340 September, Controlled substance agreement signed Z79.899 [place] [id number] [place] [address] 41181- 8810 Aug, Controlled substance agreement signed Z79.899 [place] [address] [address] [id number] [place] [address] 76606- 6009 Aug, Controlled substance agreement signed Z79.899 [place] [address] [place] [address] 37065- 3091 Aug, Controlled substance agreement signed Z79.899 [place] [id number] [address]- 4372 09 Aug, 2017 Controlled substance agreement signed Z79.899 [place] [id number] [place] [address] 15529- 8405 Jul, Controlled substance agreement signed Z79.899 and Essential hypertension I10 [place] [id number] [place] [address] 26648- 8883 Jul, [place] [id number] [place] [address] 49518- 5660 19 Jun, 2017 Essential hypertension I10 ; Controlled substance agreement signed Z79.899 ; High risk medication use Z79.899 and Overweight (BMI 25.0-29.9 ) E66.3 [place] [address] [place] [address] 32235- 7627 16 Jun, 2017 [place] [address] [id number] [place] [address] 72480- 1740 13 Jun, 2017 Essential hypertension I10 and Muscular pain M79.1 IMMUNIZATIONS No Known Immunizations SOCIAL HISTORY Never Assessed REASON FOR VISIT Controlled Med Refill PLAN OF CARE VITAL SIGNS MEDICATIONS Medication Instructions Dosage Frequency Start Date End Date Duration Status Percocet 10-325 MG Orally every 6 hrs 1 tablet as needed 6h 15 Jul, 2017 28 days Active RESULTS No Results PROCEDURES No Known procedures INSTRUCTIONS MEDICATIONS ADMINISTERED No Known Medications MEDICAL (GENERAL) HISTORY Type Description Date Medical History Back Pain from occupation Medical History hypertension
--- OUTSIDE RECORDS SUMMARY | 2018-09-20 15:47 | XMS REPORT ---
Author Author JOSE LUIS COBB Organization [facility] Address [address] [place] [address] Care Team Providers Care Credit Verifier Name Role Phone COBBTAVARES LozanoELE Unavailable PROBLEMS Type Condition ICD9-CM Code HSK29-AS Code Onset Dates Condition Status SNOMED Code Problem Essential hypertension I10 Active 66498089 ALLERGIES No Information ENCOUNTERS Encounter Location Date Diagnosis [facility] [id number] [place] [address] 30660- 3323 Dec, [place] [id number] [place] [address] 55903- 3160 Oct, Controlled substance agreement signed Z79.899 [place] [id number] [place] [address] 59820- 7224 Oct, Controlled substance agreement signed Z79.899 [place] [id number] [place] [address] 55548- 2171 Oct, Essential hypertension I10 and Controlled substance agreement signed Z79.899 [place] [address] [place] [address] 31548- 1480 September, Controlled substance agreement signed Z79.899 [place] [id number] [place] [address] 12655- 7178 Aug, Controlled substance agreement signed Z79.899 [place] [id number] [place] [address] 12674- 5463 Aug, Controlled substance agreement signed Z79.899 [place] [address] [place] [address] 15289- 0376 Aug, Controlled substance agreement signed Z79.899 [place] [id number] [address]- 5233 Aug, Controlled substance agreement signed Z79.899 [place] [id number] [place] [address] 62177- 0779 Jul, Controlled substance agreement signed Z79.899 and Essential hypertension I10 [place] [id number] [place] [address] 19354- 5634 Jul, [place] [id number] [place] [address] 08680- 3973 Jun, Essential hypertension I10 ; Controlled substance agreement signed Z79.899 ; High risk medication use Z79.899 and Overweight (BMI 25.0-29.9 ) E66.3 [place] [address] [place] [address] 08953- 3863 16 Jun, 2017 [place] [id number] [place] [address] 64373- 4471 13 Jun, 2017 Essential hypertension I10 and Muscular pain M79.1 IMMUNIZATIONS No Known Immunizations SOCIAL HISTORY Never Assessed REASON FOR VISIT requesting a returned call PLAN OF CARE VITAL SIGNS MEDICATIONS Medication [...]
--- OUTSIDE RECORDS SUMMARY | 2018-09-20 15:48 | XMS REPORT ---
Author Author JOSE LUIS COBB [facility] Address [address] [place] [address] Care Team Providers Care Sighter Name Role Phone COBBTAVARES LozanoELE Unavailable PROBLEMS Type Condition ICD9-CM Code RCK54-DA Code Onset Dates Condition Status SNOMED Code Problem Essential hypertension I10 Active 15702622 ALLERGIES No Known Allergies ENCOUNTERS Encounter Location Date Diagnosis [facility] [id number] [place] [address] [phone]- 6827 Dec, [place] [id number] [place] [address] 05785- 8707 Oct, Controlled substance agreement signed Z79.899 [place] [id number] [place] [address] 43180- 9880 Oct, Controlled substance agreement signed Z79.899 [place] [id number] [place] [address] 66340- 2879 Oct, Essential hypertension I10 and Controlled substance agreement signed Z79.899 [place] [id number] [place] [address] 23097- 5179 September, Controlled substance agreement signed Z79.899 [place] [id number] [place] [address] 24870- 7729 Aug, Controlled substance agreement signed Z79.899 [place] [id number] [place] [address] 61834- 2494 Aug, Controlled substance agreement signed Z79.899 [place] [id number] [place] [address] 89518- 1242 Aug, Controlled substance agreement signed Z79.899 [place] [id number] [address] 3316 Aug, Controlled substance agreement signed Z79.899 [place] [id number] [place] [address] 39207- 7611 Jul, Controlled substance agreement signed Z79.899 and Essential hypertension I10 [place] [id number] [place] [address] 63787- 1303 Jul, [place] [id number] [place] [address] 53385- 4534 Jun, Essential hypertension I10 ; Controlled substance agreement signed Z79.899 ; High risk medication use Z79.899 and Overweight (BMI 25.0-29.9 ) E66.3 [place] [address] [place] [address] 88319- 5026 16 Jun, 2017 [place] [id number] [place] [address] 60440- 0330 Jun, Essential hypertension I10 and Muscular pain M79.1 IMMUNIZATIONS No Known Immunizations SOCIAL HISTORY Never Assessed REASON FOR VISIT Pain (acute) leg-tjanssenMA, --c/o muscle pain in thighs on both legs. , -- questions about getting medications refilled, unable to make establish care appt 06/28 PLAN OF CARE Activity Details Follow Up prn Reason:needs to est care VITAL SIGNS Height 73 in 2017-06-22 Weight 218.1 lbs 2017-06-22 Temperature 98.6 degrees Fahrenheit 2017-06-22 Heart Rate 80 bpm 2017-06-22 Respiratory Rate 20 2017-06-22 BMI 28.77 kg/m2 2017-06-22 Blood pressure systolic 130 mmHg 2017-06-22 Blood pressure diastolic 84 mmHg 2017-06-22 MEDICATIONS Medication Instructions Dosage Frequency Start Date End Date Duration Status Percocet 10-325 MG Orally every 6 hrs 1 tablet as needed 6h Active PredniSONE 10 mg Orally Once a day 4 tabs x 4 days, 3 tabs x 4 days, 2 tabs x 4 days, then 1 tab x 4 days 24h Jun, Jul, 16 days Active Lisinopril 20 mg Orally Once a day 1 tablet 24h 30 days Active RESULTS Name Result Date Reference Range MAGNESIUM SERUM 2017-06-22 MAGNESIUM 2.5 1.5-2.5 CBC 2017-06-22 WHITE BLOOD CELL COUNT 8.3 3.8-10.8 RED BLOOD CELL COUNT 4.45 4.20-5.80 HEMOGLOBIN 13.6 13.2-17.1 HEMATOCRIT 40.0 38.5-50.0 MCV 89.9 80.0-100.0 MCH 30.6 27.0-33.0 MCHC 34.0 32.0-36.0 RDW 12.6 11.0-15.0 PLATELET COUNT 313 140-400 MPV 9.6 7.5-12.5 ABSOLUTE NEUTROPHILS 5910 [phone] ABSOLUTE LYMPHOCYTES [phone] ABSOLUTE MONOCYTES 382 200-950 ABSOLUTE EOSINOPHILS 58 15-500 ABSOLUTE BASOPHILS 8 0-200 NEUTROPHILS 71.2 LYMPHOCYTES 23.4 MONOCYTES 4.6 EOSINOPHILS 0.7 BASOPHILS 0.1 PROCEDURES Procedure Date Ordered Result Body Site COMPLETE CBC W/AUTO DIFF WBC Jun 22, 2017 ASSAY OF MAGNESIUM Jun 22, 2017 VENIPUNCT, ROUTINE* Jun 22, 2017 INSTRUCTIONS MEDICATIONS ADMINISTERED No Known Medications MEDICAL (GENERAL) HISTORY Type Description Date Medical History Back Pain from occupation Medical History hypertension
--- OUTSIDE RECORDS SUMMARY | 2018-09-20 15:48 | XMS REPORT ---
Author Author JOSE LUIS COBB Organization [facility] Address [address] [place] [address] Care Team Providers Care Barge Worker Name Role Phone COBBTAVARES LozanoELE Unavailable PROBLEMS Type Condition ICD9-CM Code NCB84-HB Code Onset Dates Condition Status SNOMED Code Problem Essential hypertension I10 Active [id number] ALLERGIES No Information ENCOUNTERS Encounter Location Date Diagnosis [facility] [id number] [place] [address] 48594- 7179 Dec, [place] [id number] [place] [address] 02182- 4441 Oct, Controlled substance agreement signed Z79.899 [place] [id number] [place] [address] 84118- 8842 Oct, Controlled substance agreement signed Z79.899 [place] [id number] [place] [address] 91485- 9737 Oct, Essential hypertension I10 and Controlled substance agreement signed Z79.899 [place] [address] [place] [address] 53249- 7661 September, Controlled substance agreement signed Z79.899 [place] [id number] [place] [address] 29190- 6608 Aug, Controlled substance agreement signed Z79.899 [place] [id number] [place] [address] 74289- 6686 Aug, Controlled substance agreement signed Z79.899 [place] [address] [place] [address] 68891- 4560 Aug, Controlled substance agreement signed Z79.899 [place] [id number], [place] [address] 6716 09 Aug, 2017 Controlled substance agreement signed Z79.899 [place] [id number] [place] [address] [phone]- [phone] 14 Jul, 2017 Controlled substance agreement signed Z79.899 and Essential hypertension I10 [place] [id number] [place] [address] 21538- 2285 Jul, [place] [id number] [place] [address] 32028- 0856 19 Jun, 2017 Essential hypertension I10 ; Controlled substance agreement signed Z79.899 ; High risk medication use Z79.899 and Overweight (BMI 25.0-29.9 ) E66.3 [place] [address] [place] [address] 92510- 0238 16 Jun, 2017 [place] [id number] [place] [address] 96852- [phone] 13 Jun, 2017 Essential hypertension I10 and Muscular pain M79.1 IMMUNIZATIONS No Known Immunizations SOCIAL HISTORY Never Assessed REASON FOR VISIT Refill request PLAN OF CARE VITAL SIGNS MEDICATIONS Medication Instructions Dosage Frequency Start Date End Date Duration Status Percocet 10-325 MG Orally every 6 hrs 1 tablet as needed 6h 15 Jul, 2017 28 days Active Lisinopril 20 mg Orally Once a day 1 tablet 24h 90 days Active RESULTS No Results PROCEDURES No Known procedures INSTRUCTIONS MEDICATIONS ADMINISTERED No Known Medications MEDICAL (GENERAL) HISTORY Type Description Date Medical History Back Pain from occupation Medical History hypertension
--- OUTSIDE RECORDS SUMMARY | 2018-09-20 15:48 | XMS REPORT ---
Author Author JOSE LUIS COBB [facility] Address [address] [place] [address] Care Team Providers Care Mental Health Aide Name Role Phone COBBTAVARES LozanoELE Unavailable PROBLEMS Type Condition ICD9-CM Code DNZ95-PD Code Onset Dates Condition Status SNOMED Code Problem Essential hypertension I10 Active 84291580 ALLERGIES No Known Allergies ENCOUNTERS Encounter Location Date Diagnosis [facility] [id number] [place] [address] [phone]- [phone] Dec, [place] [id number] [place] [address] 08977- [phone] Oct, Controlled substance agreement signed Z79.899 [place] [id number] [place] [address] 35151- 5363 Oct, Controlled substance agreement signed Z79.899 [place] [id number] [place] [address] 06017- 5895 Oct, Essential hypertension I10 and Controlled substance agreement signed Z79.899 [place] [id number] [place] [address] 39214- [phone] September, Controlled substance agreement signed Z79.899 [place] [id number] [place] [address] 29711- 3975 Aug, Controlled substance agreement signed Z79.899 [place] [id number] [place] [address] 76820- 5154 Aug, Controlled substance agreement signed Z79.899 [place] [id number] [place] [address] 09484- 1457 Aug, Controlled substance agreement signed Z79.899 [place] [id number] [phone]- 5169 Aug, Controlled substance agreement signed Z79.899 [place] [address] [place] [address] 27775- 5401 Jul, Controlled substance agreement signed Z79.899 and Essential hypertension I10 [place] [address] [address]- 4432 Jul, [place] [address] [place] [address] 99088- 5754 Jun, Essential hypertension I10 ; Controlled substance agreement signed Z79.899 ; High risk medication use Z79.899 and Overweight (BMI 25.0-29.9 ) E66.3 [place] [address] [place] [address] 67181- 5500 16 Jun, 2017 [place] [address] [place] [address] 06565- 3569 13 Jun, 2017 Essential hypertension I10 and Muscular pain M79.1 IMMUNIZATIONS No Known Immunizations SOCIAL HISTORY Never Assessed REASON FOR VISIT PMH obtained. TGrosdidiapple RN PLAN OF CARE VITAL SIGNS MEDICATIONS Medication Instructions Dosage Frequency Start Date End Date Duration Status PredniSONE 10 mg Orally Once a day 4 tabs x 4 days, 3 tabs x 4 days, 2 tabs x 4 days, then 1 tab x 4 days 24h 13 Jun, 2017 Jul, 16 days Not- Taking Percocet 10-325 MG Orally every 6 hrs 1 tablet as needed 6h Not- Taking Lisinopril 20 mg Orally Once a day 1 tablet 24h 30 days Active RESULTS No Results PROCEDURES No Known procedures INSTRUCTIONS MEDICATIONS ADMINISTERED No Known Medications MEDICAL (GENERAL) HISTORY Type Description Date Medical History Back Pain from occupation Medical History hypertension
--- OUTSIDE RECORDS SUMMARY | 2018-09-20 15:48 | XMS REPORT ---
Author Author JOSE LUIS COBB Organization [facility] [place] Address [address] [place] [address] Care Team Providers Care Disease Control Inspector Name Role Phone COBBTAVARES LozanoELE Unavailable PROBLEMS Type Condition ICD9-CM Code DDQ34-NL Code Onset Dates Condition Status SNOMED Code Problem Essential hypertension I10 Active 01473224 ALLERGIES No Known Allergies ENCOUNTERS Encounter Location Date Diagnosis [facility] [place] [id number] [place] [address] [phone] Dec, [place] [id number] [place] [address] 41778- [phone] Oct, Controlled substance agreement signed Z79.899 [place] [id number] [place] [address] 38097- 1279 Oct, Controlled substance agreement signed Z79.899 [place] [id number] [place] [address] [phone]- [phone] Oct, Essential hypertension I10 and Controlled substance agreement signed Z79.899 [place] [id number] [place] [address] 52331- 2494 September, Controlled substance agreement signed Z79.899 [place] [id number] [place] [address] 94385- 4477 Aug, Controlled substance agreement signed Z79.899 [place] [id number] [place] [address] 88902- 1811 Aug, Controlled substance agreement signed Z79.899 [place] [id number] [place] [address] 15813- 2604 Aug, Controlled substance agreement signed Z79.899 [place] [id number], [place] [address]- 3659 Aug, Controlled substance agreement signed Z79.899 [place] [address] [place] [address] 58411- 4156 Jul, Controlled substance agreement signed Z79.899 and Essential hypertension I10 [place] [address], [place] [address]- 2722 Jul, [place] [address] [place] [address] 39845- 5154 Jun, Essential hypertension I10 ; Controlled substance agreement signed Z79.899 ; High risk medication use Z79.899 and Overweight (BMI 25.0-29.9 ) E66.3 [place] [address] [place] [address] 48314- 4858 16 Jun, 2017 [place] [id number] [place] [address] 27826- 4739 Jun, Essential hypertension I10 and Muscular pain M79.1 IMMUNIZATIONS No Known Immunizations SOCIAL HISTORY Never Assessed REASON FOR VISIT Establish Care--[facility] PLAN OF CARE Activity Details Follow Up 3 Months Reason:CHM/Pain/HTN VITAL SIGNS Height 73 in 2017-06-28 Weight 218.6 lbs 2017-06-28 Temperature 98.6 degrees Fahrenheit 2017-06-28 Heart Rate 92 bpm 2017-06-28 Respiratory Rate 20 2017-06-28 BMI 28.84 kg/m2 2017-06-28 Blood pressure systolic 138 mmHg 2017-06-28 Blood pressure diastolic 82 mmHg 2017-06-28 MEDICATIONS Medication Instructions Dosage Frequency Start Date End Date Duration Status Multivitamin Adult - Active Lisinopril 20 mg Orally Once a day 1 tablet 24h 90 days Active Percocet 10-325 MG Orally every 6 hrs 1 tablet as needed 6h Jun, Jul, 28 days Active PredniSONE 10 mg Orally Once a day 4 tabs x 4 days, 3 tabs x 4 days, 2 tabs x 4 days, then 1 tab x 4 days 24h 13 Jun, 2017 Jul, 16 days Active Hydrocodone-Acetaminophen 10-325 MG Orally every 6 hrs 1 tablet as needed 6h Active RESULTS No Results PROCEDURES No Known procedures INSTRUCTIONS MEDICATIONS ADMINISTERED No Known Medications MEDICAL (GENERAL) HISTORY Type Description Date Medical History Back Pain from occupation Medical History hypertension
--- OUTSIDE RECORDS SUMMARY | 2018-09-20 15:48 | XMS REPORT ---
Author Author JOSE LUIS COBB Organization [facility] Address [address] [place] [address] Care Team Providers Care Welding Supervisor Name Role Phone COBBTAVARES LozanoELE Unavailable PROBLEMS Type Condition ICD9-CM Code XYH52-BF Code Onset Dates Condition Status SNOMED Code Problem Essential hypertension I10 Active 47421673 ALLERGIES No Information ENCOUNTERS Encounter Location Date Diagnosis [facility] [id number] [place] [address] 47026- 1804 Dec, [place] [id number] [place] [address] 91832- 8177 Oct, Controlled substance agreement signed Z79.899 [place] [id number] [place] [address] 09635- 2715 Oct, Controlled substance agreement signed Z79.899 [place] [id number] [place] [address] 43748- 0051 Oct, Essential hypertension I10 and Controlled substance agreement signed Z79.899 [place] [address] [place] [address] 13956- 7062 September, Controlled substance agreement signed Z79.899 [place] [id number] [place] [address] 41860- 0316 Aug, Controlled substance agreement signed Z79.899 [place] [address] [place] [address] 84433- 1278 Aug, Controlled substance agreement signed Z79.899 [place] [address] [place] [address] 64110- 8341 Aug, Controlled substance agreement signed Z79.899 [place] [id number] [address]- 6651 09 Aug, 2017 Controlled substance agreement signed Z79.899 [place] [id number] [place] [address] 68768- 7924 Jul, Controlled substance agreement signed Z79.899 and Essential hypertension I10 [place] [id number] [place] [address] 09286- 4172 Jul, [place] [id number] [place] [address] 16706- 3478 19 Jun, 2017 Essential hypertension I10 ; Controlled substance agreement signed Z79.899 ; High risk medication use Z79.899 and Overweight (BMI 25.0-29.9 ) E66.3 [place] [address] [place] [address] 26051- 5825 16 Jun, 2017 [place] [id number] [place] [address] 49101- 9175 13 Jun, 2017 Essential hypertension I10 and Muscular pain M79.1 IMMUNIZATIONS No Known Immunizations SOCIAL HISTORY Never Assessed REASON FOR VISIT [facility] results PLAN OF CARE VITAL SIGNS MEDICATIONS Unknown Medications RESULTS No Results PROCEDURES No Known procedures INSTRUCTIONS MEDICATIONS ADMINISTERED No Known Medications MEDICAL (GENERAL) HISTORY Type Description Date Medical History Back Pain from occupation Medical History hypertension
[2018-09-20] MEDS ORDERED: PRD20T PO (16:15)
[2018-09-20] MEDS ORDERED: METH-313 PO (16:15)
--- NOTE | 2018-09-20 16:15 | ED Back Pain ---
General Chief Complaint: Back Problems Stated Complaint: BACK PAIN Nursing Triage Note: pt arrived pov with c/o right lower back pain that goes down right leg. Pt has 5 known bulging discs. He started a new job and the lifting and mechanics has flare it up. pt has an appt with his doctor but they wouldn't see him early so they sent him here Nursing Sepsis Screen: No Definite Risk Source of Information: Patient Exam Limitations: No Limitations History of Present Illness Date Seen by Provider: September 20, 2018 Time Seen by Provider: 16:11 Initial Comments To ER with reports of right lower back pain that radiates down the right leg. No loss of bowel or bladder control. No loss of sensation genitals. No fevers or chills. This began yesterday. 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 He states that he has 5 known bulging disks and has been on oxycodone for many years. He states that he had some dental work done in [place] and was given a prescription for hydrocodone which voided his pain contract at [facility] so he was fired as a patient and is out of oxycodone. Location: Lumbar Spine Timing/Duration: 1-2 Days Severity: Moderate Associated Symptoms: lower back pain Allergies and Home Medications Allergies Coded Allergies: No Known Drug Allergies (Unverified , 02/02/18) Home Medications Multivitamin 1 Each Tablet, 1 EACH PO DAILY, (Reported) Oxycodone HCl/Acetaminophen 1 Each Tablet, 1 EACH PO Q8H PRN for PAIN-MODERATE, (Reported) Patient Home Medication List Home Medication List Reviewed: Yes Review of Systems Constitutional: see HPI EENTM: see HPI Respiratory: no symptoms reported Cardiovascular: no symptoms reported Musculoskeletal: see HPI, back pain Skin: no symptoms reported Psychiatric/Neurological: No Symptoms Reported Past Cnccfdt-Qbfgui-Kvdlrk Hx Patient Social History Alcohol Use: Denies Use Recreational Drug Use: No Recent Foreign Travel: No Contact w/Someone Who Travel: No Recent Infectious Disease Expo: No Recent Hopitalizations: No Seasonal Allergies Seasonal Allergies: No Past Medical History Surgeries: No Respiratory: No Cardiac: No Neurological: No Reproductive Disorders: No Sexually Transmitted Disease: No HIV/AIDS: No Gastrointestinal: No Musculoskeletal: Yes Chronic Back Pain Endocrine: No Loss of Vision: Denies Hearing Impairment: Denies Cancer: No Psychosocial: No Integumentary: No Blood Disorders: No Adverse Reaction/Blood Tranf: No (N/A) Physical Exam Vital Signs Vital Signs - First Documented 09/20/18 15:45 Temp 98.8 Pulse 99 Resp 18 B/P (MAP) 165/96 (119) Pulse Ox 100 O2 Delivery Room Air Capillary Refill : Less Than 3 Seconds Height, Weight, BMI Height: 6'1.00" Weight: 220lbs. 0.0oz. 99.676639da; 29.0 BMI Method:Stated General Appearance: No Apparent Distress, WD/WN HEENT: PERRL/EOMI, TMs Normal Neck: Full Range of Motion, Normal Inspection Respiratory: No Accessory Muscle Use, No Respiratory Distress Gastrointestinal: Non Tender, Soft Extremity: Normal Capillary Refill, Normal Inspection (she likely better) Neurologic/Psychiatric: Alert, Oriented x3 Skin: Normal Color, Warm/Dry Lower extremity strength with knee flexion is 5 out of 5 bilaterally. Progress/Results/Core Measures Results/Orders Vital Signs/I&O 09/20/18 15:45 Temp 98.8 Pulse 99 Resp 18 B/P (MAP) 165/96 (119) Pulse Ox 100 O2 Delivery Room Air Blood Pressure Mean: 119 Departure Impression Primary Impression: Acute exacerbation of chronic low back pain Disposition: HOME, SELF-CARE Condition: Stable Departure-Patient Inst. Decision time for Depature: 16:13 Referrals: [facility] (PCP) Primary Care Physician ERIC MORALES APRN (Family) Primary Care Physician KELLIE SCHMID MD, JACQUELINE S DO STEWART, CHAD C MD Patient Instructions: MANAGING YOUR CHRONIC PAIN Add. Discharge Instructions: 1. Follow-up within 1 week with her primary care provider. A few have been listed for you. Steroids and muscle relaxers as directed. All discharge instructions reviewed with patient and/or family. Voiced understanding. Scripts Methocarbamol (Robaxin-750) 750 Mg Tablet 750 MG PO Q4H PRN for PAIN-MODERATE TO SEVERE, #20 TAB Prov: KELLY DUKES APRN 09/20/18 Prednisone (Prednisone) 20 Mg Tab 40 MG PO DAILY, #8 TAB 0 Refills Prov: KELLY DUKES APRN 09/20/18 KELLY DUKES APRN September 20, 2018 16:15
[2018-09-20 16:20] VITALS: BP 148/72
== END 2018-09-20 16:21 | disposition home or self-care (01) ==
LOC: EDUNIT# 15:41 → ER 15:43
DX: M54.5 Low back pain (principal); G89.29 Other chronic pain; X50.0XXA Overexertion from strenuous movement or load, initial encounter
CPT/HCPCS: 99281

== ENCOUNTER 2020-04-02 21:20 | Emergency (ER) | payer OTHER ==
[~2020-04-02] VITALS: Ht 185.5 cm; Wt 99.7 kg
[~2020-04-02 21:20] MED LIST changes: +METH-313 PO; +PRD20T PO
--- NOTE | 2020-04-02 21:40 | ED EENT ---
History of Present Illness General Chief Complaint: Ear Problems Stated Complaint: BILAT EAR PAIN/DIZZINESS Nursing Triage Note: bilateral ear pain x2 days. left worse than right. Source: patient History of Present Illness Date Seen by Provider: Apr 02, 2020 Time Seen by Provider: 21:25 Initial Comments PT ARRIVES VIA POV FROM HOME C/O BILATERAL EAR PAIN X 2 DAYS--LEFT > RIGHT DECREASED HEARING ON LEFT NO DRAINAGE NO HEADACHE NO NAUSEA/VOMITING NO FEVER HAS HAD SOME NASAL CONGESTION C/O LIGHTHEADEDNESS--NOT SPINNING SENSATION NO VISION CHANGES NO PARESTHESIAS OR MOTOR DEFICITS HAS SOME ROARING IN EARS SYMPTOMS NO DIFFERENT TONIGHT HAS NOT TAKEN ANYTHING FOR PAIN NO RECENT ILLNESS TAKES LISINOPRIL FOR HTN DENIES ANY MISSED DOSES OF MEDICATIONS, BUT PER MED RECONCILIATION, HE HAS NOT FILLED RX FOR LISINOPRIL SINCE 08/08/19 FOR 1 MONTH SUPPLY. STATES BP AT HOME TONIGHT WAS 185/110--CLAIMS NORMALLY "120/80", BUT HAS NOT SEEN A DR IN OVER A YEAR. PCP: [facility] Allergies and Home Medications Allergies Coded Allergies: No Known Drug Allergies (Unverified , 02/02/18) Home Medications Ciprofloxacin HCl/Dexameth 7.5 Ml Soln, 7.5 ML OT BID Prescribed by: JAE MOORE on 04/02/202201 Meclizine HCl 25 Mg Tablet, 50 MG PO Q6 PRN for DIZZINESS Prescribed by: JAE MOORE on 04/02/202201 Methocarbamol 750 Mg Tablet, 750 MG PO Q4H PRN for PAIN-MODERATE TO SEVERE Prescribed by: KELLY DUKES on 09/20/18 1615 Multivitamin 1 Each Tablet, 1 EACH PO DAILY, (Reported) Oxycodone HCl/Acetaminophen 1 Each Tablet, 1 EACH PO Q8H PRN for PAIN-MODERATE, (Reported) Prednisone 20 Mg Tab, 40 MG PO DAILY Prescribed by: KELLY DUKES on 09/20/18 1615 Patient Home Medication List Home Medication List Reviewed: Yes Review of Systems Review of Systems Constitutional: see HPI; No chills, No diaphoresis; dizziness; No fever, No weakness Eyes: No Symptoms Reported Ears: See HPI, Dizziness, Pain; Denies Bloody Discharge, Denies Clear Discharge, Denies Purulent Discharge, Denies Serosanguinous Discharge Nose: see HPI, congestion; denies pain, denies purulent discharge Mouth: no symptoms reported Throat: no symptoms reported Respiratory: no symptoms reported Cardiovascular: no symptoms reported Gastrointestinal: no symptoms reported Musculoskeletal: no symptoms reported Skin: no symptoms reported Neurological: See HPI (DIZZINESS); Denies Headache, Denies Numbness, Denies Paresthesia Hematologic/Lymphatic: No Symptoms Reported Immunological/Allergic: no symptoms reported Past Rutneao-Exwsya-Yuelet Hx Past Med/Social Hx: Reviewed and Corrections made Patient Social History Alcohol Use: Denies Use Recreational Drug Use: No Smoking Status: Never a Smoker 2nd Hand Smoke Exposure: No Recent Foreign Travel: No Contact w/Someone Who Travel: No Recent Infectious Disease Expo: No Recent Hopitalizations: No Immunizations Up To Date Tetanus Booster (TDap): Unknown Seasonal Allergies Seasonal Allergies: No Past Medical History Surgeries: No Respiratory: No Cardiac: Yes Hypertension Neurological: No Reproductive Disorders: No Sexually Transmitted Disease: No HIV/AIDS: No Genitourinary: No Gastrointestinal: No Musculoskeletal: Yes Chronic Back Pain Endocrine: No HEENT: No Loss of Vision: Denies Hearing Impairment: Denies Cancer: No Psychosocial: No Integumentary: No Blood Disorders: No Adverse Reaction/Blood Tranf: No (N/A) Physical Exam Vital Signs Vital Signs - First Documented 04/02/20 21:25 Temp 36.4 Pulse 107 Resp 18 B/P (MAP) 187/120 (142) Pulse Ox 99 O2 Delivery Room Air Height, Weight, BMI Height: 6'1.00" Weight: 220lbs. 0.0oz. 99.605621iw; 28.00 BMI Method:Stated General Appearance: WD/WN, no apparent distress Eyes: bilateral eye normal inspection, bilateral eye PERRL, bilateral eye EOMI Ears: bilateral ear other (RIGHT TM OBSCURED BY CERUMEN. LEFT EAR--PAIN WITH TRACTION ON PINNA. EAC INFLAMED WITH EXUDACE. TM OBSURED BY CERUMEN AND DRAINAGE. HEARING IMPROVED WITH TRACTION ON PINNA. ) Mouth/Throat: normal mouth inspection, pharynx normal Neck: non-tender, full range of motion, supple, normal inspection; No carotid bruit Cardiovascular: regular rate, rhythm, no murmur Respiratory: normal breath sounds Neurologic/Psychiatric: fur sorter II-XII nml as tested, no motor/sensory deficits, alert, oriented x 3, other (ANXIOUS) Skin: normal color, warm/dry Progress/Results/Core Measures Results/Orders My Orders Orders - JAE MOORE DO Clonidine Tablet (Catapres Tablet) (04/02/20 21:45) Meclizine Tablet (Antivert Tablet) (04/02/20 21:45) Clonidine Tablet (Catapres Tablet) (04/02/20 22:15) Medications Given in ED Vital Signs/I&O Blood Pressure Mean: 142 Progress Progress Note : Progress Note GIVEN CLONIDONE FOR ELEVATED BLOOD PRESSURE GIVEN ANTIVERT FOR DIZZINESS Departure Impression Primary Impression: Otitis externa Additional Impressions: HTN (hypertension) Impacted cerumen Disposition: HOME, SELF-CARE Condition: Improved Departure-Patient Inst. Referrals: [facility] (PCP) Primary Care Physician ERIC MORALES APRN (Family) Primary Care Physician Patient Instructions: How to Use Ear Drops, Ear Wax Impaction (DC), DASH Diet, High Blood Pressure (DC), Outer Ear Infection (DC) Add. Discharge Instructions: DO NOT DRIVE IF YOU ARE DIZZY TAKE YOUR BLOOD PRESSURE MEDICATION EVERY DAY--DO NOT MISS DOSES SLOW POSITION CHANGES FOLLOW UP WITH [facility] THIS WEEK FOR FURTHER CARE All discharge instructions reviewed with patient and/or family. Voiced understanding. Scripts Meclizine HCl (Meclizine HCl) 25 Mg Tablet 50 MG PO Q6 PRN for DIZZINESS, #15 TAB Prov: JAE MOORE DO 04/02/20 Ciprofloxacin HCl/Dexameth (Ciprodex Otic Suspension) 7.5 Ml Soln 7.5 ML OT BID for 7 Days, #1 EA Prov: JAE MOORE DO 04/02/20 JAE MOORE DO Apr 02, 2020 21:40
[2020-04-02] MEDS ORDERED: MECLIZINE 25 MG (ANTIVERT) TAB PO ONE (21:45)
[2020-04-02] MEDS ORDERED: cloNIDine 0.1 MG (CATAPRES) TAB PO ONE ×2 (21:45→22:15)
[2020-04-02] MEDS ORDERED: MECL-149 PO (22:02)
[2020-04-02] MEDS ORDERED: NF-CIPDEC OT (22:02)
[2020-04-02 22:30] VITALS: BP 157/108
== END 2020-04-02 22:33 | disposition home or self-care (01) ==
LOC: EDUNIT# 21:20 → ER 21:21
DX: H60.93 Unspecified otitis externa, bilateral (principal); I10 Essential (primary) hypertension; H61.23 Impacted cerumen, bilateral; F41.9 Anxiety disorder, unspecified; G89.29 Other chronic pain; M54.9 Dorsalgia, unspecified; Z79.52 Long term (current) use of systemic steroids; Z79.891 Long term (current) use of opiate analgesic
CPT/HCPCS: 99283